=== PATIENT | male | born 1995 | race Caucasian/White ===

== ENCOUNTER 2017-03-18 13:20 | Emergency (ER) | payer OTHER ==
[2017-03-18 14:35] VITALS: BP 143/74
[2017-03-18] MEDS ORDERED: Ketorolac INJ* 60 MG/2 ML VIAL IM ONE (16:26)
--- NOTE | 2017-03-18 17:04 | ED ---
Lower Extremity - HPI Summary HPI Summary: Patient presents to ED with bilateral knee pain after jumping off a ledge and hyperextending both knees last night. He notes to a 5/10 pain with rest and 8/ 10 pain with walking. The pain is not localized but more prominent on the lateral side on the right knee and more to the medial and posterior side of the left knee. He states he has never injured his knees before. He has taken tylenol without relief of pain. He is ambulatory but states there is pain when he walks. He is unable to extend both his knees and is currently walking while slumped over for pain control. - History of Current Complaint Chief Complaint: EDExtremityLower Stated Complaint: KNEE PAIN Time Seen by Provider: 03/18/17 15:26 Hx Obtained From: Patient Mechanism Of Injury: Unknown Onset of Pain: Immediate Onset/Duration: Hours Severity Initially: Moderate Severity Currently: Moderate Pain Intensity: 6 Pain Scale Used: 0-10 Numeric Timing: Constant Location: Is Discrete @ Character Of Pain: Sharp Associated Signs And Symptoms: Positive: Negative Aggravating Factor(s): Standing, Ambulation, Movement, Weight Bearing Alleviating Factor(s): Rest Able to Bear Weight: Yes - Risk Factors Gout Risk Factors: Male DVT Risk Factors: Negative Septic Arthritis Risk Factor: Negative - Allergies/Home Medications Allergies/Adverse Reactions: Allergies Allergy/AdvReac Type Severity Reaction Status Date / Time No Known Allergies Allergy Verified 03/18/17 15:39 PMH/Surg Hx/FS Hx/Imm Hx Previously Healthy: Yes - Cancer History Hx Hematologic Symptoms: No Hx Chemotherapy: No Hx Radiation Therapy: No Hx Palliative Cancer Treatment: No - Surgical History Hx Anesthesia Reactions: No - Immunization History Hx Pertussis Vaccination: No Immunizations Up to Date: No Infectious Disease History: No Infectious Disease History: Denies: Traveled Outside the [place] in Last 30 Days - Social History Occupation: Employed Full-time Lives: With Family Alcohol Use: Weekly Hx Substance Use: No Substance Use Type: Reports: None Hx Tobacco Use: No Smoking Status (MU): Current Some Day Smoker Do You Chew or Dip Tobacco: No Review of Systems Constitutional: Negative Eyes: Negative Cardiovascular: Negative Respiratory: Negative Genitourinary: Negative Skin: Negative Psychological: Normal All Other Systems Reviewed And Are Negative: Yes Physical Exam Triage Information Reviewed: Yes Vital Signs On Initial Exam: Initial Vitals Temp Pulse Resp BP Pulse Ox 98.5 F 93 20 152/79 98 03/18/17 13:27 03/18/17 13:27 03/18/17 13:27 03/18/17 13:27 03/18/17 13:27 Vital Signs Reviewed: Yes Appearance: Positive: Well-Appearing, No Pain Distress, Well-Nourished Skin: Positive: Warm, Skin Color Reflects Adequate Perfusion Eyes: Positive: Normal, KAYLIN Neck: Positive: Supple, Nontender, No Lymphadenopathy Respiratory/Lung Sounds: Positive: Clear to Auscultation, Breath Sounds Present Cardiovascular: Positive: Normal, RRR, Pulses are Symmetrical in both Upper and Lower Extremities Musculoskeletal: Positive: Limited @ - extension of knees bilaterally, Pain @ - lateral side of right knee, medial side of left knee Neurological: Positive: Normal, Sensory/Motor Intact Psychiatric: Positive: Normal AVPU Assessment: Alert Diagnostics - Vital Signs Vital Signs Temp Pulse Resp BP Pulse Ox 03/18/17 14:33 98.7 F 89 20 143/74 98 03/18/17 13:29 97.4 F 93 16 152/79 100 03/18/17 13:27 98.5 F 93 20 152/79 98 - Laboratory Lab Statement: Any lab studies that have been ordered have been reviewed, and results considered in the medical decision making process. Lower Extremity Course/Dx - Course Course Of Treatment: Patient sent to xray d/t bilateral pain, injury from over 3ft and d/t inability to walk without pain. RIGHT knee: Small suprapatellar joint effusion. Negative for fracture, or malalignment. Preserved joint spaces. Unremarkable soft tissue contours. LEFT knee: Small suprapatellar joint effusion. Negative for fracture or malalignment. Preserved joint spaces. Unremarkable soft tissue contours. IMPRESSION: Small bilateral knee joint effusions without additional finding. Jamie wraps on knees bilaterally and follow up with Dr. Markham. Anterior drawer, apprehension, mcmurrys, live exams all negative. Apley's compression positive. - Diagnoses Differential Diagnosis/HQI/PQRI: Positive: Fracture (Closed), Fracture (Open), Sprain, Strain, Tendonitis Provider Diagnoses: Knee pain, bilateral Discharge - Discharge Plan Condition: Stable Disposition: HOME Patient Education Materials: Knee Pain (ED) Referrals: [facility] [Primary Care Provider] - Susana Markham MD [Medical Doctor] - Additional Instructions: Follow up with PCP. Follow up with Dr. Hernández's office if pain continues. Continue with jamie wraps for 2-3 days. Do not over extend the knees. Ibuprofen 600mg three times daily for pain. Do not play sports for at least 1 week or until you are asymptomatic.
--- NOTE | 2017-03-18 17:20 | RAD ---
Indication: Bilateral knee pain following injury. Lateral and posterior pain with flexion. Anterior pain with extension. Jumping injury with hyperextension both knees. Comparison: None. Technique: AP and lateral views of the bilateral knees Report: RIGHT knee: Small suprapatellar joint effusion. Negative for fracture, or malalignment. Preserved joint spaces. Unremarkable soft tissue contours. LEFT knee: Small suprapatellar joint effusion. Negative for fracture or malalignment. Preserved joint spaces. Unremarkable soft tissue contours. IMPRESSION: Small bilateral knee joint effusions without additional finding.
== END 2017-03-18 17:34 | disposition home or self-care (01) ==
LOC: ED 13:20
DX: M25.562 Pain in left knee (principal); M25.561 Pain in right knee; Z72.0 Tobacco use
CPT/HCPCS: 99282; J1885